=== PATIENT | female | born 1990 | race Two or more races ===

== ENCOUNTER 2025-01-25 22:49 | Emergency (ER) | payer MEDICAID, SELFPAY ==
[2025-01-25 23:55] VITALS: BMI 32.8
[2025-01-25 23:59] VITALS: BP 165/116; PULSE 78; RESP 17; TEMP 36.7; O2SAT 96
--- NOTE | 2025-01-26 00:29 | PD.EDSKIN ---
ED Skin Abcess FB-RME/HPI General Chief complaint: Chest Pain Stated complaint: CHEST PAIN Time Seen by Provider: 01/26/25 00:28 Arrival date/time: 01/25/25 22:49 RME / HPI RME / HPI narrative: This section includes all my notes and documentations, including HPI, PE, and ED course. Chau Lopez MD HPI: 34 y/o female presents to ED c/o painfully progressing lump on the left breast x 6 days. Denies shortness of breath or loss of appetite, but may have had subjective fever 4 days ago with no formal temperature taken. Patient regularly takes Ibuprofen for headaches and believes it may also be helping her with the pain from her breast. Denies any chance of . No other complaints. ROS: All negative except as documented in HPI. Physical Exam: General: Alert and oriented. No acute distress when remaining still. Eyes: Conjunctivae and lids clear. ENT: No nasal congestion. Neck: Supple. Heart: RRR. Lungs: No respiratory distress. Good air movement. No rhonchi, wheezing, rales. Abdomen: Soft and nontender. Back: No CVA tenderness. Skin: Warm and dry. Neuro: Alert and oriented X 3. Breasts: In the lower quadrants of the left breast, I can palpate a small pickle sized mass. I reviewed all diagnostic test results. My interpretation of the EKG is: Sinus rhythm (76 bpm) with nonspecific ST-T changes. Chau Lopez MD My review of the Left Breast US report is no acute findings. Blood tests unremarkable. Treatment here included Toradol, IV fluids, CT scan ordered. At 6 AM on 01/26/2025, the care of the patient was transferred to Dr. HAILE. Chau Lopez MD Related Data Allergies Allergy/AdvReac Type Severity Reaction Status Date / Time No Known Allergies Allergy Verified 01/25/25 22:51 Review of Systems Review of Systems Systems Reviewed: All systems reviewed, normal except as documented Past Medical History Past Medical History CARDIAC: Positive Hypertension Surgical History SURGICAL: Positive Section ED Exam Narrative Physical exam: Refer to HPI above Course Quality Measures none Orders Category Date Time Status CT Screening NOW Care 01/26/25 03:05 Active EKG (ED ONLY) *Do not use* NOW Care 01/25/25 22:54 Completed Saline [Insert IV] NOW Care 01/26/25 00:[address] chest w con Stat Exams 01/26/25 03:05 Taken EKG (ED Only) Stat Exams 01/25/25 22:54 Ordered US breast LT complete Stat Exams 01/26/25 01:14 Taken Blood Culture (Lab) Stat Lab 01/26/25 00:39 Received CBC Stat Lab 01/26/25 00:34 Completed CMP [Comprehensive Metabolic Panel] Stat Lab 01/26/25 00:34 Completed CRP [C-Reactive Protein] Stat Lab 01/26/25 00:34 Completed ESR [Sed Rate (ESR)] Stat Lab 01/26/25 00:34 Completed Lactate (Lactic Acid) Stat Lab 01/26/25 00:30 Completed Magnesium Stat Lab 01/26/25 00:34 Completed Procalcitonin Stat Lab 01/26/25 00:34 Completed Ketorolac Inj [Toradol Inj] Med 01/26/25 00:29 Discontinued 30 mg IVP X1 ONE Sodium Chloride 0.9% 1000 ml [Ns] 1,000 ml Med 01/26/25 03:04 Discontinued IV 999 mls/hr Vital Signs Vital signs: Vital Signs Temperature 98.1 F 01/25/25 23:59 Pulse Rate 78 01/25/25 23:59 Respiratory Rate 17 01/25/25 23:59 Blood Pressure 165/116 H 01/25/25 23:59 Pulse Oximetry (%) 96 01/25/25 23:59 Oxygen Delivery Method Room Air 01/25/25 23:59 Skin / Abscess / Foreign Body MDM Narrative MDM Narrative:: Scribe Attestation: Aileen Felipe, am scribing for and in the presence of Dr. Lopez. Provider Notation: Although this document has been carefully reviewed, there may still be some phonetic and other typographical errors.? These errors are purely grammatical due to imperfections in the software program and should not be construed in any way to? compromise the substance of the patient's medical care during this visit. 34 y/o female presents to ED c/o painfully progressing lump on the left breast x 6 days. Patient data External records reviewed:: [facility] [place] previous records (No prior ED records available for review.) Clinical information provided by:: patient Social determinants that could affect healthcare access:: none Patient has the following chronic illnesses:: Hypertension How is presenting disease/condition affected by chronic disease/condition?: uneffected by Evaluation data The following diagnostics were reviewed and interpreted by me:: EKG tracing(s) (My interpretation of the EKG is: Sinus rhythm (76 bpm) with nonspecific ST-T changes. Chau Lopez MD) Lab and/or radiology exams considered but not ordered:: None Interpretation Summary: I reviewed all diagnostic test results. My interpretation of the EKG is: Sinus rhythm (76 bpm) with nonspecific ST-T changes. Chau Lopez MD My review of the Left Breast US report is no acute findings. Blood tests unremarkable. Chest CT report pending. Medications / Prescriptions Medications or Prescriptions considered but not ordered:: None Medication administrations:: Medication Administration History Discontinued Medications Sodium Chloride (Ns) 1,000 mls @ 999 mls/hr IV .Q1H1M ONE Stop: 01/26/25 04:04 Last Admin: 01/26/25 03:47 Dose: 999 mls/hr Documented By: EF Ketorolac Tromethamine (Ketorolac Inj 30 Mg/Ml Vial) 30 mg IVP X1 ONE Stop: 01/26/25 00:30 Last Admin: 01/26/25 00:47 Dose: 30 mg Documented By: EF IV fluids, Toradol Consultations Consultation(s) initiated? (list below): No Diagnosis Skin/Abscess Differential Diagnosis: abscess of skin or subcutaneous tissue, cellulitis and other (Mastitis, tumor) Most likely diagnosis given after review of the tests above:: Chest CT pending. Admission Indicated Admission indicated?: not indicated Explain why admission is indicated or not indicated:: Chest CT pending. Admission Request Was there a request for admission?: No Disposition Plan Disposition Plan: other (specify) (Care of the patient was transferred to Dr. HAILE.) Discharge Plan Prescriptions/Referrals Referrals: Christophe Holliday MD [Primary Care Provider] - In 1 week Problem List Clinical Impression: Left breast mass Patient/Caregiver Discharge Instructions Print Language: Upper Sorbian
[2025-01-26 00:42] LABS: Lactate (Lactic Acid) 0.8 mMol/L (0.4-2.0)
[2025-01-26] MEDS: KETOROLAC INJ 30 MG/ML VIAL IVP (00:47)
[2025-01-26 00:57] LABS: Basophils % (Auto) 0 % (0-2.5); Eosinophils # (Auto) 0.2 Thou/mm3 (0.0-0.5); Eosinophils % (Auto) 2 % (0-10); Hematocrit 31.7 % (36.0-46.0); Immature Granulocytes % (Auto) 1 % (0-0); Immature Granulocytes Auto 0.07 Thou/mm3 (0.00-0.00); Lymphocytes # (Auto) 2.8 Thou/mm3 (1.0-4.8); Lymphocytes % (Auto) 30 % (10-50); Mean Corpuscular HGB Conc 34.7 g/dl (31.0-37.0); Mean Corpuscular Hemoglobin 29.4 pg (25.0-35.0); Mean Corpuscular Volume 85 fL (80-100); Monocytes # (Auto) 0.7 Thou/mm3 (0.0-0.8); Monocytes % (Auto) 8 % (0-12); Neutrophils # (Auto) 5.7 Thou/mm3 (1.8-7.7); Neutrophils % (Auto) 60 % (37-80); Nucleated Red Blood Cell % 0 /100 WBC (0); Platelet Count 404 Thou/mm3 (140-440); RDW Standard Deviation 42.3 fL (36.4-46.3); Red Blood Count 3.74 Miln/mm3 (4.00-5.20); White Blood Count 9.5 Thou/mm3 (3.6-11.0)
--- NOTE | 2025-01-26 01:14 | XR_ITS ---
Examination: Breast ultrasound, unilateral, left Date and time of exam: January 26, 2025 0209 hours INDICATIONS: Palpable lump in the left breast note is beginning 5 days ago Technique: Real-time dumont scale ultrasonographic imaging performed left breast including all 4 quadrants as well as nipple retroareolar and axillary region. Findings: No cystic or solid mass detected Edema in the left breast IMPRESSION: BI-RADS Category 0: Incomplete: Need additional imaging evaluation This patient should return for repeat ultrasonography with the radiologist in attendance, also recommend diagnostic mammography follow-up
[2025-01-26 01:19] LABS: Alanine Aminotransferase 44 U/L (10-49); Albumin, Serum 4.6 gm/dL (3.5-5.0); Albumin/Globulin Ratio 1.5 (1.2-2.2); Alkaline Phosphatase 109 U/L (46-116); Anion Gap 11 (7-16); Aspartate Amino Transferase 26 U/L (0-34); BUN/Creatinine Ratio 14 Ratio (12-20); Bilirubin,Total 0.4 mg/dL (0.3-1.2); Blood Urea Nitrogen 10 mg/dL (9-23); C-Reactive Protein 1.2 mg/dL (0.0-0.9); Calcium 8.9 mg/dL (8.3-10.6); Calcium (Corrected) 8.9 mg/dL (8.5-10.1); Carbon Dioxide 24.8 mMol/L (20.0-31.0); Chloride 106 mMol/L (98-107); Creatinine (Component) 0.7 mg/dL (0.6-1.3); Estimated Creatinine Clearance 103.3 mL/min (>60); Globulin 3.1 gm/dL (2.3-3.5); Glucose 104 mg/dL (74-106); Magnesium 1.9 mg/dL (1.6-2.6); Osmolality,Calculated 282 (275-295); Potassium 3.5 mMol/L (3.4-5.1); Procalcitonin < 0.04 ng/ml (0.0-0.49); Sodium 142 mMol/L (136-145); Total Protein 7.7 gm/dL (5.7-8.2); eGFR > 60 See Note
[2025-01-26 01:31] LABS: Sed Rate (ESR) 33 mm/hr (0-20)
--- NOTE | 2025-01-26 03:05 | XR_ITS ---
Examination: CT chest with intravenous contrast 2-D sagittal and coronal reconstructions Exam date and time: January 26, 2025 0445 hours INDICATIONS: Left chest pain today including palpable mass left breast CTDI:vol (mGy) 12.5 DLP: (mGycm) 456 Technique: Multiple axial sections of the thorax have been obtained. Sections have been obtained, 3 mm slice thickness. Mediastinal and lung density settings have been obtained. Intravenous contrast administered, 60 cc Isovue 370. 2-D sagittal, coronal images obtained. Low dose protocols were performed. One or more of the following dose reduction techniques were used; automated exposure control, adjustment of the mA and/or KV according to patient size, use of iterative reconstruction technique. Findings: No thoracic aortic aneurysmal dilatation No pulmonary artery filling defects Mild enlargement cardiac contour No paratracheal tracheobronchial or bronchopulmonary adenopathy. 10 mm nodule right lower lobe Diffusely increased nodular density in the left breast including 10 mm nodule axial image 70 Diffuse fatty infiltration throughout the liver No gallstones No pancreatic or adrenal mass 11 mm lateral right angiomyolipoma IMPRESSION: 10 mm pulmonary nodule right lower lobe, with this study as baseline recommend 6 month follow-up CT chest without contrast Abnormal nodular left breast architecture including 10 mm nodule left breast, recommend diagnostic mammography follow-up
--- NOTE | 2025-01-26 03:25 | PRELIM_ITS ---
Left breast ultrasound. January 26, 2025 0209 hours Clinical history: Large mass Comparison: None. Findings and Impression: No mass or fluid collection. Edema is noted around the 5 o'clock position. Report Electronically Signed By: Stuart Resendez 01/26/2025 3:24:37 AM [EST]
[2025-01-26] MEDS: SODIUM CHLORIDE 0.9% 1000 ML 1,000 ML 999 ML IV (03:47)
--- NOTE | 2025-01-26 06:00 | PRELIM_ITS ---
CT scan of the chest with intravenous contrast (axial sections with sagittal and coronal reformats) January 26, 2025 at 0445 hours Clinical History: Left breast mass (size of a small pickle). Comparison: None. Findings: Clear lung bases. Liver, spleen, pancreas, gallbladder, adrenal glands unremarkable. A 1 cm right renal angiomyolipoma. Nonobstructing left renal calculi. A 10 mm left breast cyst or nodule (image 71). A 9 mm right lower lobe nodule (image 86). No lymphadenopathy is identified. Cardiac size is normal. No pericardial effusion, pleural effusion or pneumothorax. No acute osseous process. Impression: 1. A 10 mm left breast cyst or nodule. 2. A 9 mm right lower lobe nodule. Recommend follow-up. 3. Nonobstructing left renal calculi. Report Electronically Signed By: Stuart Resendez 01/26/2025 5:59:24 AM [EST]
[2025-01-26 06:14] VITALS: BP 113/71; PULSE 93; RESP 15; O2SAT 98
--- NOTE | 2025-01-26 06:21 | EDNOTE_ITS ---
Emergency Room Addendum Addendum Narrative: 0600: Care assumed from Dr. Lopez, the previous shift emergency physician. Past medical, surgical, social and family history reviewed. Vitals and home medications reviewed. I will assume the care of the patient at this time, pending diagnostics tests and final disposition. Please refer to the emergency department record for history and examination from initial visit.? Physical exam by me shows patient under no acute distress at this time. There is a small mass in the left breast, CT shows a cyst. CC: Left breast red spot, small mass. Denies any breast feeding. No other symptoms reported at this time. 0650: Patient remains clinically stable throughout the emergency department visit. Re-assessment at the time of disposition demonstrates that the patient is in no acute distress. We reviewed all the results, analysis, and treatment plans. Patient is amenable to discharge. Strict return precautions were outlined. Patient was discharged in stable condition. Diagnoses: -Left breast mass -Breast tenderness RADIOLOGY [facility] [address] [place] [address] [employer] Preliminary Report Draft Patient: RUIZ OSORIO Record#: [id number] Birthdate: 1990 Age/Sex: 34 / F Location: [facility] Attending Dr: Ordering Physician: Date of Service: Procedure(s): Accession Number(s): cc: ~ CT scan of the chest with intravenous contrast (axial sections with sagittal and coronal reformats) January 26, 2025 at 0445 hours Clinical History: Left breast mass (size of a small pickle). Comparison: None. Findings: Clear lung bases. Liver, spleen, pancreas, gallbladder, adrenal glands unremarkable. A 1 cm right renal angiomyolipoma. Nonobstructing left renal calculi. A 10 mm left breast cyst or nodule (image 71). A 9 mm right lower lobe nodule (image 86). No lymphadenopathy is identified. Cardiac size is normal. No pericardial effusion, pleural effusion or pneumothorax. No acute osseous process. Impression: 1. A 10 mm left breast cyst or nodule. 2. A 9 mm right lower lobe nodule. Recommend follow-up. 3. Nonobstructing left renal calculi. Report Electronically Signed By: Stuart Resendez 01/26/2025 5:59:24 AM [EST] [facility] [address] [place] [address] [employer] Preliminary Report Draft Patient: RUIZ OSORIO. Record#: [id number] Birthdate: 1990 Age/Sex: 34 / F Location: [facility] Attending Dr: Ordering Physician: Date of Service: Procedure(s): Accession Number(s): cc: ~ Left breast ultrasound. January 26, 2025 0209 hours Clinical history: Large mass Comparison: None. Findings and Impression: No mass or fluid collection. Edema is noted around the 5 o'clock position. Report Electronically Signed By: Stuart Resendez 01/26/2025 3:24:37 AM [EST]
[2025-01-26 07:03] VITALS: PULSE 89; RESP 18; O2SAT 97
== END 2025-01-26 07:03 | disposition home or self-care (01) ==
PROVIDERS: Emergency Medicine; Emergency Provider Emergency Medicine; PCP Family Medicine
DX: N63.20 Unspecified lump in the left breast, unspecified quadrant (principal); R91.1 Solitary pulmonary nodule; N20.0 Calculus of kidney
CPT/HCPCS: 36415; 71260; 76641; 80053; 83605; 83735; 84145; 85025; 85652; 86140; 87040; 96361; 96374; 99285; A4649; J1885; J7030; Q9967